=== PATIENT | female | born 1965 | race Caucasian/White ===

== ENCOUNTER 2018-01-16 10:16 | Inpatient (IN) | payer OTHER ==
[~2018-01-16] VITALS: Ht 162.6 cm; Wt 70.1 kg
[~2018-01-16 10:16] MED LIST: FERR-46 PO; LEVO75TA PO
[2018-01-16] MEDS ORDERED: LACTATED RINGERS 1,000 ML IV SCH (10:39)
[2018-01-16 10:57] VITALS: BP 115/72
[2018-01-16] MEDS ORDERED: GABAPENTIN 300 MG CAPSULE PO ONE (11:00)
[2018-01-16] MEDS ORDERED: ACETAMINOPHEN 500 MG TABLET PO ONE (11:00)
[2018-01-16] MEDS ORDERED: OxyconTIN ER 20 MG TAB.ER PO ONE (11:00)
[2018-01-16 11:36] LABS: HCG UR SG 1.012 (1.003-1.030)
[2018-01-16] MEDS ORDERED: FENTANYL PF 100 MCG/2ML ONE (13:16)
[2018-01-16] MEDS ORDERED: MIDAZOLAM 1 MG/ML, 2ML ONE (13:16)
[2018-01-16] MEDS ORDERED: ROCURONIUM 10MG/ML,5ML ONE (13:18)
[2018-01-16] MEDS ORDERED: PROPOFOL 10 MG/ML, 20ML ONE (13:18)
[2018-01-16] MEDS ORDERED: NEOSTIGMINE 1 MG/ML, 10ML ONE (13:19)
[2018-01-16] MEDS ORDERED: GLYCOPYRROLATE 0.4 MG/2 ML, 2ML ONE (13:19)
[2018-01-16] MEDS ORDERED: ONDANSETRON 2MG/ML, 2ML ONE (13:20)
[2018-01-16] MEDS ORDERED: DEXAMETHASONE 4 MG/ML, 1ML ONE ×2 (13:20)
[2018-01-16] MEDS ORDERED: INDIGO CARMINE 0.8%, 5ML ONE (13:25)
[2018-01-16] MEDS ORDERED: BUPIVACAINE/PF-EPI 0.25% 1:200K ONE (13:26)
[2018-01-16] MEDS ORDERED: FLUORESCEIN SODIUM 500 MG/5 ML ONE (13:26)
[2018-01-16] MEDS ORDERED: HYDROmorphone 1 MG/ML, 1ML IV PRN (13:30)
[2018-01-16] MEDS ORDERED: hydrALAzine 20 MG/ML, 1ML IV PRN (13:30)
[2018-01-16] MEDS ORDERED: PROMETHAZINE 25 MG SUPP PR PRN (13:30)
[2018-01-16] MEDS ORDERED: PROMETHAZINE 12.5 MG SUPP PR PRN (13:30)
[2018-01-16] MEDS ORDERED: OXYcodone 5 MG/5 ML ORAL.SOL UDC PO PRN ×2 (13:30→19:00)
[2018-01-16] MEDS ORDERED: ONDANSETRON 2MG/ML, 2ML IV PRN ×2 (13:30→19:00)
[2018-01-16] MEDS ORDERED: LABETALOL 5MG/ML, 20ML IV PRN (13:30)
[2018-01-16] MEDS ORDERED: PROMETHAZINE 25 MG/ML, 1ML IV PRN (13:30)
[2018-01-16] MEDS ORDERED: FENTANYL PF 100 MCG/2ML IV PRN (13:30)
[2018-01-16] MEDS ORDERED: ONDANSETRON ODT 8 MG PO PRN (13:30)
[2018-01-16] MEDS ORDERED: MORPHINE SULFATE 4 MG/ML, 1ML IVPush PRN (13:30)
[2018-01-16] MEDS ORDERED: CEFOTETAN 2 GM ONE (13:33)
[2018-01-16] MEDS ORDERED: FENTANYL PF 250 MCG/5ML ONE (13:41)
[2018-01-16] MEDS ORDERED: OXYcodone 5 MG/5 ML ORAL.SOL UDC ONE (16:10)
[2018-01-16] MEDS ORDERED: MEPERIDINE/PF 50 MG/ML ONE (16:10)
[2018-01-16] MEDS: MEPERIDINE/PF 25MG/0.5ML IVPush PRN ×2 (16:15→16:30)
[2018-01-16] MEDS ORDERED: PROMETHAZINE 25 MG/ML, 1ML ONE (16:57)
[2018-01-16] MEDS ORDERED: BISACODYL 10 MG SUPP PR PRN (19:00)
[2018-01-16 19:28] VITALS: BP 118/56
[2018-01-16] MEDS: D5%-LACTATED RINGERS 1,000 ML IV SCH (19:50)
[2018-01-16] MEDS: SODIUM CHLORIDE FLUSH 10ML SYR IVF SCH (19:50)
[2018-01-16] MEDS: DOCUSATE 100 MG CAPSULE PO SCH (19:59)
[2018-01-16] MEDS ORDERED: ZOLPIDEM 5MG TABLET PO PRN (21:00)
[2018-01-17 00:51] VITALS: BP 109/61
[2018-01-17] MEDS: D5%-LACTATED RINGERS 1,000 ML IV SCH ×2 (02:41→11:00)
[2018-01-17 03:11] VITALS: BP 103/54
[2018-01-17 07:59] VITALS: BP 95/53
[2018-01-17] MEDS: DOCUSATE 100 MG CAPSULE PO SCH (08:51)
[2018-01-17] MEDS: SODIUM CHLORIDE FLUSH 10ML SYR IVF SCH (08:51)
[2018-01-17] MEDS ORDERED: ONDA4TAB7 PO (11:05)
[2018-01-17] MEDS ORDERED: HYDR1TAB12 PO (11:07)
== END 2018-01-17 12:20 | disposition home or self-care (01) | DRG 743 ==
LOC: OUT 10:16 → 4NOR 17:44 → OUT 20:41 → 4NOR 21:02
PROVIDERS: ADMIT Obstetrics & Gynecology Gynecology; ATTEND Obstetrics & Gynecology Gynecology
PROC: 0UT2FZZ Resection of Bilateral Ovaries, Via Natural or Artificial Opening With Percutaneous Endoscopic Assistance (ICD-10-PCS; 2018-01-16)
PROC: 0UT7FZZ Resection of Bilateral Fallopian Tubes, Via Natural or Artificial Opening With Percutaneous Endoscopic Assistance (ICD-10-PCS; 2018-01-16)
PROC: 0UN04ZZ Release Right Ovary, Percutaneous Endoscopic Approach (ICD-10-PCS; 2018-01-16)
PROC: 0UQF4ZZ Repair Cul-de-sac, Percutaneous Endoscopic Approach (ICD-10-PCS; 2018-01-16)
PROC: 8E0W4CZ Robotic Assisted Procedure of Trunk Region, Percutaneous Endoscopic Approach (ICD-10-PCS; 2018-01-16)
PROC: 0TJB8ZZ Inspection of Bladder, Via Natural or Artificial Opening Endoscopic (ICD-10-PCS; 2018-01-16)
PROC: 0UT9FZZ Resection of Uterus, Via Natural or Artificial Opening With Percutaneous Endoscopic Assistance (ICD-10-PCS; principal; 2018-01-16 12:30)
DX: D25.9 Leiomyoma of uterus, unspecified (principal); N92.0 Excessive and frequent menstruation with regular cycle; D64.9 Anemia, unspecified; N73.6 Female pelvic peritoneal adhesions (postinfective); N81.5 Vaginal enterocele; N83.8 Other noninflammatory disorders of ovary, fallopian tube and broad ligament; F17.210 Nicotine dependence, cigarettes, uncomplicated; E03.9 Hypothyroidism, unspecified; Z98.51 Tubal ligation status; Z72.89 Other problems related to lifestyle; Z80.0 Family history of malignant neoplasm of digestive organs; Z80.59 Family history of malignant neoplasm of other urinary tract organ; Z80.3 Family history of malignant neoplasm of breast; Z82.49 Family history of ischemic heart disease and other diseases of the circulatory system; Z83.3 Family history of diabetes mellitus; Z83.49 Family history of other endocrine, nutritional and metabolic diseases; Z82.3 Family history of stroke; N80.9 Endometriosis, unspecified
CPT/HCPCS: 36415; J7121; S0074; 81025; 85014; 85018; 88305; 88307; 88333; J1100; J2175; J2250; J2270; J2405; J2550; J2704; J2710; J3010; J7120